=== PATIENT | female | born 1930 | race Caucasian/White ===

== ENCOUNTER 2018-03-13 13:10 | Emergency (ER) | payer MEDICARE, OTHER ==
[~2018-03-13] VITALS: Ht 165.1 cm; Wt 71.4 kg
[2018-03-13] MEDS ORDERED: METOPROLOL TART25 MG PO (13:36)
[2018-03-13 14:08] LABS: BE 2.2 mmol/L (-2 to +3); HCO3 25.2 mmol/L (22.0-26.0); PCO2 34.5 mmHg (35.0-45.0); pH 7.482 (7.340-7.450)
[2018-03-13 14:29] LABS: ABSOLUTE BASOPHILS 0.1 thou/uL (0.0-0.2); ABSOLUTE EOSINOPHILS 0.1 thou/uL (0.0-0.7); ABSOLUTE LYMPHOCYTES 1.8 thou/uL (0.8-5.3); ABSOLUTE MONOCYTES 0.8 thou/uL (0.0-1.2); ABSOLUTE NEUTROPHILS 6.1 thou/uL (1.6-8.1); BASOPHILS 1.2 %; EOSINOPHILS 1.2 %; HEMOGLOBIN 14.6 gm/dL (12.0-15.0); LYMPHOCYTES 20.4 %; MCH 32.6 pg (26.0-34.0); MCHC 33.9 g/dL (28.0-37.0); MCV 96.2 fL (80.0-100.0); MONOCYTES 8.7 %; MPV 9.8 fl. (7.2-11.1); NUCLEATED RBCS 0 /100WBC; PLATELET COUNT* 203 thou/uL (150-400); POLYS 68.5 %; RBC 4.47 mil/uL (4.20-5.00); RDW-CV 13.2 % (10.5-14.5); WBC 8.9 thou/uL (4.0-11.0)
[2018-03-13 14:36] LABS: ANION GAP 5 mmol/L (7-16); BUN 17 mg/dL (7-18); CALCIUM 9.4 mg/dL (8.5-10.1); CHLORIDE 104 mmol/L (98-107); CO2 29 mmol/L (21-32); CREATININE 0.7 mg/dL (0.6-1.3); GLUCOSE 101 mg/dL (70-99); POTASSIUM 4.2 mmol/L (3.5-5.1); SODIUM 138 mmol/L (136-145)
[2018-03-13 14:44] LABS: ALBUMIN 3.7 g/dL (3.4-5.0); ALKALINE PHOSPHATASE 57 U/L (46-116); SGOT 21 U/L (15-37); SGPT 31 U/L (30-65); TOTAL BILIRUBIN 0.7 mg/dL (<0.1-1.0); TOTAL PROTEIN 6.5 g/dL (6.4-8.2); TROPONIN-I LEVEL <0.06 ng/mL (<0.06)
--- NOTE | 2018-03-13 17:04 | EKG ---
[place] [address] ELECTROCARDIOGRAM REPORT Name: MADI POLANCO Room: [facility]#: [id number] Admission: 03/13/18 Attend Phys: Discharge: Date of : [birth year] Report #: [id number] THIS REPORT FOR: //name// [facility] ED Test Date: 2018-03-13 Test Time: 13:20:26 Pat Name: MADI POLANCO Department: Room: Gender: F [employer] Farmer: Sandra GENTILE : 1930 Requested By: Shelbie Gary Order Number: [id number] MD: Rey Calle Measurements Intervals [place] Rate: 57 P: -12 CO: 195 QRS: -44 QRSD: 144 T: 7 QT: 475 QTc: 463 Interpretive Statements Sinus rhythm RBBB and LAFB Left ventricular hypertrophy No previous ECG available for comparison Electronically Signed On 03-13-2018 17:03:57 CDT by Rey aClle [email or web address] <ELECTRONICALLY SIGNED> By: Rey Calle MD, [facility] 03/13/18 1703 1320 1320 Rey Calle MD, FACC /EPI
[2018-03-13 17:06] VITALS: BP 152/83
== END 2018-03-13 17:06 | disposition short-term general hospital (02) ==
LOC: M.ERS 13:10
PROVIDERS: Personal Emergency Response Attendant
DX: R41.82 Altered mental status, unspecified (principal); Z88.1 Allergy status to other antibiotic agents; Z88.8 Allergy status to other drugs, medicaments and biological substances